=== PATIENT | male | born 1960 | race Caucasian/White ===

== ENCOUNTER 2022-07-10 16:34 | Emergency (ER) | payer BC ==
[2022-07-10] MEDS ORDERED: Augmentin 875-125 Tablet PO ONE (16:57)
[2022-07-10] MEDS ORDERED: MORPHINE SULFATE 4 MG INJ IM ONE (16:57)
[2022-07-10] MEDS ORDERED: Augmentin 875-125 Tablet ONE (16:59)
[2022-07-10] MEDS ORDERED: MORPHINE SULFATE 4 MG INJ ONE (16:59)
[2022-07-10 17:29] VITALS: BP 175/93; PULSE 117
[2022-07-10 17:32] VITALS: O2SAT 97
--- NOTE | 2022-07-10 17:32 | ERPHSYRPT ---
- History of Present Illness Time Seen by Provider: 07/10/22 16:38 Source: patient Exam Limitations: no limitations Patient Subjective Stated Complaint: Pt states "I just got a tooth pulled and I think the infection went down my throat. I am shaking and my head is killing me.:" Triage Nursing Assessment: PT presented alert and oriented X 3, skin pwd. PT ambulates with an upright steady gait, pt anxious and unable to sit still. Physician History: 61 years old male with history of hypertension, hyperlipidemia, hypothyroidism presented in the ER with a chief complaint of left upper jaw pain severe sharp throbbing for almost an hour since he has a tooth pulled out at a dental office. Patient reports he was told left side face and had hard really bad and is having shaking. Patient reports his tooth was infected and now infection is going down in the throat. Because of pain having blood pressure in 200s. Timing/Duration: abrupt onset, hours (1) Severity: severe ENT Location: dental Prearrival Treatment: no prearrival treatment Associated Symptoms: facial pain/swelling, headache, jaw pain, tooth pain Allergies/Adverse Reactions: No Known Drug Allergies Allergy (Verified 02/29/16 06:29) Home Medications: Levothyroxine Sodium 150 Mcg [Synthroid 150 Mcg] 1 tab PO QHS 02/25/16 [History] Pravastatin Sodium 1 tab PO QHS 02/25/16 [History] lisinopriL [Lisinopril] 1 tab PO QHS 02/25/16 [History] Hx Tetanus, Diphtheria Vaccination/Date Given: Yes Hx Influenza Vaccination/Date Given: No Hx Pneumococcal Vaccination/Date Given: No Immunizations Up to Date: Yes Travel Risk - International Travel Have you traveled outside of the country in past 3 weeks: No - Coronavirus Screening Are you exhibiting any of the following symptoms?: Yes Symptoms: Fever Close contact with a COVID-19 positive Pt in past 14-21 Days: No - Vaccine Status Have you recieved a Covid-19 vaccination: Yes [employer]: Pycno - Vaccination Dates Date of 2cond Vaccination (if applicable): 2020 - Review of Systems Constitutional: No Symptoms Eyes: No Symptoms Ears, Nose, & Throat: Mouth Pain, Mouth Swelling, Throat Swelling Respiratory: No Symptoms Cardiac: No Symptoms Abdominal/Gastrointestinal: No Symptoms Genitourinary Symptoms: No Symptoms Skin: No Symptoms Neurological: Headache Psychological: No Symptoms Endocrine: No Symptoms Hematologic/Lymphatic: No Symptoms Immunological/Allergic: No Symptoms - Past Medical History Pertinent Past Medical History: Yes Neurological History: No Pertinent History ENT History: No Pertinent History Cardiac History: Hypertension Respiratory History: No Pertinent History Endocrine Medical History: Hypothyroidism Musculoskeletal History: No Pertinent History GI Medical History: No Pertinent History History: No Pertinent History Psycho-Social History: No Pertinent History Male Reproductive Disorders: No Pertinent History - Past Surgical History Past Surgical History: Yes Neuro Surgical History: No Pertinent History Cardiac: No Pertinent History Respiratory: No Pertinent History Gastrointestinal: Hernia Repair Genitourinary: No Pertinent History Musculoskeletal: No Pertinent History Male Surgical History: Vasectomy - Social History Smoking Status: Light tobacco smoker Exposure to second hand smoke: No Drug Use: none Patient Lives Alone: No - Nursing Vital Signs Nursing Vital Signs: Initial Vital Signs Temperature 100.0 F 07/10/22 16:40 Pulse Rate 112 H 07/10/22 16:40 Respiratory Rate 24 07/10/22 16:40 Blood Pressure 216/110 07/10/22 16:40 O2 Sat by Pulse Oximetry 97 07/10/22 16:40 Pain Scale Pain Intensity 4 - Physical Exam General Appearance: no apparent distress, alert Eye Exam: bilateral eye: normal inspection, PERRL, EOMI Ear Exam: bilateral ear: auricle normal, canal normal, TM normal Nasal Exam: normal inspection Throat Exam: normal, pharynx normal, dental tenderness (Left upper molar extraction with clot and no active bleeding. Tenderness around. No fluctuation.) Neck Exam: normal inspection, full range of motion Cardiovascular/Respiratory Exam: normal breath sounds, tachycardia Abdominal Exam: non-tender, soft Neurologic Exam: alert, oriented x 3, cooperative Skin Exam: normal color SpO2 Interpretation: normal SpO2: 97 O2 Delivery: Room Air Ordered Tests: Medication Summary Discontinued Medications Generic Name Dose Route Start Last Admin Trade Name Freq PRN Reason Stop Dose Admin Amoxicillin/Clavulanate Potassium 875 mg 07/10/22 16:57 07/10/22 17:00 Amox Tr/Potassium Clavulanate 875 Mg Tablet PO 07/10/22 16:58 875 mg STAT ONE Administration Amoxicillin/Clavulanate Potassium Confirm 07/10/22 16:59 Amox Tr/Potassium Clavulanate 875 Mg Tablet Administered 07/10/22 17:00 Dose 875 mg .ROUTE .STK-MED ONE Morphine Sulfate 4 mg 07/10/22 16:57 07/10/22 17:00 Morphine Sulfate 4 Mg/Ml Injection IM 07/10/22 16:58 4 mg STAT ONE Administration Morphine Sulfate Confirm 07/10/22 16:59 Morphine Sulfate 4 Mg/Ml Injection Administered 07/10/22 17:00 Dose 4 mg .ROUTE .STK-MED ONE - Progress Progress: improved Progress Note: 07/10/22 17:30 Is given morphine for symptomatic relief. Has low-grade temperature, recommended blood work which he refused. He would just want antibiotics. He is given Augmentin. Patient is feeling much better on reevaluation. Blood pre ssure improved to 170s but still tachycardic with heart rate in 130s. I have discussed with patient and in length about importance of blood work but he does not want to stay in the hospital at all. Patient states "I have been up since last midnight and I need to go to bed, I am totally fine". Discussed with him the risk of leaving with delaying diagnosis, worsening of condition, sepsis, worsening morbidity but still does not want to stay in the hospital and signed AMA papers. He is not confused or altered at all. Counseled pt/family regarding: diagnosis, need for follow-up - Departure Departure Disposition: AMA Clinical Impression: Dental infection, Tachycardia Condition: Stable Critical Care Time: No Referrals: FELI SHARPE [Primary Care Provider] - Follow up/PCP as directed (1-2 days for reevaluation) Instructions: Fever, Adult (DC) Additional Instructions: Take pain medication given to youby your dentist. Follow-up with primary care and dentist for reevaluation. Return to ER for worsening pain or if having fever chills etc. Prescriptions: Amox Tr/Potass Clav. 875 mg [Augmentin 875-125 Tablet] 875 mg PO BID #14 t endert
== END 2022-07-10 17:45 | disposition left against medical advice (07) ==
LOC: ED 16:34
DX: K04.7 Periapical abscess without sinus (principal); R00.0 Tachycardia, unspecified; R68.84 Jaw pain; I10 Essential (primary) hypertension; E78.5 Hyperlipidemia, unspecified; Z72.0 Tobacco use; Z79.899 Other long term (current) drug therapy
CPT/HCPCS: 96372; 99283; J2270; A9270-GY